=== PATIENT | female | born 1985 | race Caucasian/White ===

== ENCOUNTER 2023-05-21 01:59 | Emergency (ER) | payer OTHER ==
[2023-05-21] MEDS ORDERED: DOXYCYCLINE 100 MG TABLET PO STA (02:41)
--- NOTE | 2023-05-21 02:43 | ED Physician Documentation ---
PD HPI SKIN - Stated complaint Stated Complaint: L FACE PX - History obtained from History obtained from: Patient - Additional information Additional information: Patient presents for facial lesion on L chin. Attempted to go to walk-in clinic and [facility] but was unable to get an appointment. States she is concerned because she has started to notice shooting pain from her chin to her ear and a lump under her jaw. Review of Systems Constitutional: denies: Fever, Chills GI: denies: Nausea, Vomiting Skin: reports: Lesions. denies: Rash, Abrasion (s), Laceration (s) PD PAST MEDICAL HISTORY - Present Medications Home Medications: Ambulatory Orders Medication Instructions Recorded Confirmed Doxycycline Hyclate 100 mg PO BID #14 tab 05/21/23 - Allergies Allergies/Adverse Reactions: Allergies Allergy/AdvReac Type Severity Reaction Status Date / Time Penicillins Allergy Rash Verified 05/21/23 02:42 PD ED PE NORMAL - Vitals Vital signs reviewed: Yes - General General: Alert and oriented X 3, No acute distress, Well developed/nourished - HEENT HEENT: Atraumatic, PERRL - Neck Neck: Supple, no meningeal sign, Other (tender submandibular lymph node left side) - Cardiac Cardiac: RRR, Strong equal pulses - Respiratory Respiratory: No respiratory distress, Clear bilaterally - Abdomen Abdomen: Soft, Non distended - Derm Derm: Warm and dry, Other (cystic lesion L chin, indurated) - Extremities Extremities: No deformity, No tenderness to palpate, Normal ROM s pain, No edema - Neuro Neuro: Alert and oriented X 3, protocol officer 2-12 intact, No motor deficit, Normal speech - Psych Psych: Normal mood, Normal affect Results - Vitals Vitals: Vital Signs - 24 hr 05/21/23 02:35 Temperature 36.7 C Heart Rate 101 H Respiratory 16 Rate Blood Pressure 145/87 H O2 Saturation 100 Oxygen O2 Source Room air PD Medical Decision Making - ED course Complexity details: considered differential, d/w patient ED course: cystic facial lesion on patient's chin. No fluctuance to suggest drainable abscess. Due to patient's symptoms and location will start doxycycline. Counseled warm compresses to help express cyst and recommended patient avoid manipulation of the affected area. Departure - Departure Disposition: Home, Self Care Condition: Stable Instructions: ED Cyst Sebaceous Infec Abx Tx Prescriptions: Doxycycline Hyclate 100 mg PO BID #14 tab
[2023-05-21 02:46] VITALS: BP 145/87
== END 2023-05-21 03:05 | disposition home or self-care (01) ==
LOC: ED 01:59
DX: L72.9 Follicular cyst of the skin and subcutaneous tissue, unspecified (principal); Z88.0 Allergy status to penicillin
CPT/HCPCS: 99282; 99283; A9270